=== PATIENT | male | born 1965 | race American Indian/Alaskan Native ===

== ENCOUNTER 2019-05-21 05:37 | Observation (INO) | payer OTHER ==
[2019-05-18 11:51] LABS: Basophils % (Auto) 0.8 % (0.0-1.8); Eosinophils # (Auto) 0.3 K/mm3 (0.0-0.4); Eosinophils % (Auto) 5.1 % (0.0-4.3); Hematocrit 43.3 % (35.5-45.6); Hemoglobin 14.4 gm/dl (11.8-15.2); Lymphocytes % (Auto) 38.8 % (13.4-35.0); Mean Corpuscular HGB Conc 33 % (32-34); Mean Corpuscular Volume 82 fl (84-94); Monocytes # (Auto) 0.4 K/mm3 (0.0-0.8); Monocytes % (Auto) 6.9 % (0.0-7.3); Platelet Count 220 K/mm3 (140-440); Red Cell Distribution Width 13.8 % (13.2-15.2)
[2019-05-18 12:10] LABS: Alanine Aminotransferase 12 units/L (7-56); Albumin 4.3 g/dL (3.9-5); BUN/Creatinine Ratio 12; Blood Urea Nitrogen 12 mg/dL (9-20); Calcium 8.8 mg/dL (8.4-10.2); Hemolysis Index 66
--- NOTE | 2019-05-18 12:11 | Anesthesia Consultation ---
Anesthesia Consult and Med Hx Date of service: 05/18/19 - Airway Anesthetic Teeth Evaluation: Good ROM Head & Neck: Adequate Mental/Hyoid Distance: Adequate Mallampati Class: Class III Intubation Access Assessment: Probably Good - Pulmonary Exam CTA: Yes - Cardiac Exam Cardiac Exam: RRR - Pre-Operative Health Status ASA Pre-Surgery Classification: ASA3 Proposed Anesthetic Plan: General - Pulmonary Hx Smoking: Yes (STOPPED X 4 YRS , NOW VAPS DAILY) Hx Sleep Apnea: Yes (DX SLEEP APNEA WITH BIPAP AND O2 USE AT NIGHT) - Cardiovascular System Hx Hypertension: Yes (X 20 YRS) - Central Nervous System Hx Psychiatric Problems: Yes (ANXIETY & DEPRESSION) - Gastrointestinal Hx Gastroesophageal Reflux Disease: Yes - Endocrine Hx Liver Disease: Yes (Hyperlipidemia) Hx Insulin Dependent Diabetes: Yes - Other Systems Hx Alcohol Use: Yes (2-3 DRINKS (VODKA) PER DAY) Hx Cancer: Yes (PROSTATE) - Additional Comments Anesthesia Medical History Comments: Patient states that he was diagnosed with an enlarged left ventricle. Patient completed a stress test and E[facility] a month ago. Records are not on the chart; will f/u with Dr. Estrada's office to see if they have a copy and order EKG today. Patient will bring a copy of the results from primary if he can find it at home.
[~2019-05-21 05:37] MED LIST: ceFAZolin/Water 2 GM/20 ML 2 GM/20 ML SYRINGE IV NR
[2019-05-21] MEDS ORDERED: LACTATED RINGERS 1,000 ML IV SCH (06:00)
[2019-05-21] MEDS ORDERED: ACETAMINOPHEN 500 MG TAB PO NR (06:00)
[2019-05-21] MEDS ORDERED: GABAPENTIN 300 MG CAP PO NR (06:00)
[2019-05-21] MEDS ORDERED: BACTERIOSTATIC SODIUM CHLORIDE 0.9% 30 ML VIAL INFILTRATI ONE (06:23)
[2019-05-21] MEDS: MIDAZOLAM 2 MG/2 ML INJ IV NR ×2 (07:03→07:41)
[2019-05-21] MEDS ORDERED: carvediloL 25 MG TAB PO NR (07:20)
[2019-05-21] MEDS ORDERED: amLODIPine 10 MG TAB PO NR (07:20)
[2019-05-21] MEDS ORDERED: fentaNYL 100 MCG/2 ML INJ IV PRN (07:21)
--- NOTE | 2019-05-21 07:21 | Anesthesia Day of Surgery ---
Anesthesia Day of Surgery - Day of Surgery Patient Examined: Yes Patient H&P Reviewed: Yes Patient is NPO: Yes Beta Blockers: Yes (will give usual dose coreg in preop)
[2019-05-21] MEDS ORDERED: BUPIVACAINE-EPINEPHRINE/PF 0.5%-1:200,000 (30 ML) VIAL INFILTRATI ONE ×2 (07:26→09:18)
[2019-05-21] MEDS ORDERED: CITRIC ACID-SOD CITRATE 500 ML IV ONE (07:26)
[2019-05-21] MEDS ORDERED: CALCIUM CHLORIDE 1,000 MG/10 ML SYRINGE IV ONE (07:27)
[2019-05-21] MEDS ORDERED: METHYLENE BLUE 50 MG/10 ML AMP ONE (07:27)
[2019-05-21] MEDS ORDERED: THROMBIN (RECOMBINANT) 5,000 UNIT VIAL TP ONE (07:29)
[2019-05-21] MEDS ORDERED: HYDROmorphone 1 MG/1 ML INJ ONE (07:29)
[2019-05-21] MEDS ORDERED: PROPOFOL 200 MG/20 ML VIAL IV ONE (07:29)
[2019-05-21] MEDS ORDERED: ROCURONIUM 50 MG/5 ML INJ IV ONE ×2 (07:36→09:36)
[2019-05-21] MEDS ORDERED: LIDOCAINE MPF (2%) 20 MG/1 ML VIAL 5 ML ONE (07:36)
[2019-05-21] MEDS ORDERED: WATER FOR IRRIG STERILE 1,500 ML BOTTLE IR ONE (09:19)
[2019-05-21] MEDS ORDERED: SODIUM CHLORIDE 0.9% IRRIG SOLN 2000 ML IR ONE (09:19)
[2019-05-21] MEDS ORDERED: ePHEDrine SULFATE 50 MG/1 ML INJ ONE (09:45)
[2019-05-21] MEDS ORDERED: GLYCOPYRROLATE 0.4 MG/2 ML INJ ONE (10:54)
[2019-05-21] MEDS ORDERED: NEOSTIGMINE 10MG/10 ML INJ MDV ONE (10:55)
[2019-05-21] MEDS ORDERED: ONDANSETRON 4 MG/2 ML INJ ONE (11:00)
[2019-05-21] MEDS ORDERED: NALOXONE 0.4 MG/1 ML INJ IV PRN (11:21)
[2019-05-21] MEDS ORDERED: ONDANSETRON 4 MG/2 ML INJ IV PRN (11:21)
[2019-05-21] MEDS ORDERED: ZOLPIDEM 5 MG TAB PO PRN (11:21)
[2019-05-21] MEDS ORDERED: DEXTROSE 50% IN WATER (25GM) 50 ML SYRINGE IV PRN (11:21)
--- NOTE | 2019-05-21 11:21 | Short Stay Summary ---
<JOSHUA BYRD S - Last Filed: 05/22/19 07:34> Short Stay Documentation - Allergies and Medications Current Medications: Allergies metformin Allergy (Verified 05/14/19 17:02) Hives telmisartan [From Micardis] Allergy (Verified 05/14/19 17:03) Hives Home Medications Medication Instructions Recorded Confirmed Last Taken Type Aspirin [Adult Aspirin] 81 mg PO DAILY 05/14/19 05/21/19 05/15/19 History Coreg 25 mg PO BID 05/14/19 05/14/19 05/19/19 History Famotidine [Pepcid] 20 mg PO PRN PRN 05/14/19 05/14/19 05/19/19 History Insulin Detemir [Levemir] 60 unit SQ BID 05/14/19 05/21/19 05/18/19 History [place]-3 Fatty Acids/Fish Oil [Fish 1 each PO DAILY 05/14/19 05/14/19 05/19/19 History Oil] amLODIPine [Norvasc] 10 mg PO DAILY 05/14/19 05/14/19 05/19/19 History hydroCHLOROthiazide [HCTZ] 25 mg PO QDAY 05/14/19 05/14/19 05/19/19 History Active Medications Acetaminophen/Hydrocodone Bitart ([place] 5/325) 2 each PO Q4H PRN PRN Reason: Pain, Moderate (4-6) Last Admin: 05/22/19 02:44 Dose: 2 each Documented by: Amlodipine Besylate (Amlodipine) 10 mg PO DAILY KANA Carvedilol (Coreg) 25 mg PO Q12HR KANA Last Admin: 05/21/19 21:51 Dose: 25 mg Documented by: Dextrose (D50w (25gm) Syringe) 50 ml IV Q30MIN PRN; Protocol PRN Reason: Hypoglycemia Famotidine (Pepcid) 20 mg PO PRN PRN PRN Reason: Indigestion Last Admin: 05/21/19 17:56 Dose: 20 mg Documented by: Hydrochlorothiazide (Hctz) 25 mg PO QDAY [facility] Lactated Ringer's (Lactated Ringers) 1,000 mls @ 100 mls/hr IV DIRECT KANA Last Admin: 05/21/19 06:50 Dose: 100 mls/hr Documented by: Sodium Chloride (Nacl 0.9% 1000 Ml) 1,000 mls @ 125 mls/hr IV DIRECT KANA Last Admin: 05/22/19 06:02 Dose: 125 mls/hr Documented by: Cefazolin Sodium (Ancef/Sterile Water 2 Gm/20 Ml) 2 gm in 20 mls @ 80 mls/hr IV PREOP NR; Protocol Stop: 05/27/19 14:14 Cefazolin Sodium (Ancef/Ns 1 Gm/50 Ml) 1 gm in 50 mls @ 100 mls/hr IV Q8H KANA; Protocol Stop: 05/23/19 20:29 Last Admin: 05/22/19 04:02 Dose: 100 mls/hr Documented by: Insulin Glargine (Lantus) 60 units SUB-Q BID KANA Last Admin: 05/21/19 21:52 Dose: 60 units Documented by: Morphine Sulfate (Morphine) 2 mg IV Q4H PRN PRN Reason: Pain, Moderate (4-6) Last Admin: 05/21/19 21:54 Dose: 2 mg Documented by: Naloxone HCl (Naloxone) 0.1 mg IV Q2MIN PRN PRN Reason: Res Rate </= 8 or 02 SAT < 92% Ondansetron HCl (Zofran) 4 mg IV Q8H PRN PRN Reason: Nausea And Vomiting Last Admin: 05/21/19 14:26 Dose: 4 mg Documented by: Zolpidem Tartrate (Ambien) 5 mg PO QHS PRN PRN Reason: Sleep - Disposition Condition at discharge: Stable - Discharge Diagnoses (1) Status post prostatectomy Status: Acute (2) HTN (hypertension) Status: Chronic Qualifiers: Hypertension type: essential hypertension Qualified Code(s): I10 - Essential (primary) hypertension (3) Diabetes mellitus, insulin dependent (IDDM), controlled Status: Chronic (4) DVT prophylaxis Status: Acute Short Stay Discharge Plan Follow up with: [facility] [Primary Care Provider] - 7 Days <SEBASTIAN SIMMS - Last Filed: 05/22/19 12:25> Short Stay Documentation Date of service: 05/21/19 - History H&P: obtained from office - Allergies and Medications Current Medications: Allergies metformin Allergy (Verified 05/14/19 17:02) Hives telmisartan [From Micardis] Allergy (Verified 05/14/19 17:03) Hives Home Medications Medication Instructions Recorded Confirmed Last Taken Type Aspirin [Adult Aspirin] 81 mg PO DAILY 05/14/19 05/21/19 05/15/19 History Coreg 25 mg PO BID 05/14/19 05/14/19 05/19/19 History Famotidine [Pepcid] 20 mg PO PRN PRN 05/14/19 05/14/19 05/19/19 History Insulin Detemir [Levemir] 60 unit SQ BID 05/14/19 05/21/19 05/18/19 History [place]-3 Fatty Acids/Fish Oil [Fish 1 each PO DAILY 05/14/19 05/14/19 05/19/19 History Oil] amLODIPine [Norvasc] 10 mg PO DAILY 05/14/19 05/14/19 05/19/19 History hydroCHLOROthiazide [HCTZ] 25 mg PO QDAY 05/14/19 05/14/19 05/19/19 History Active Medications Acetaminophen (Tylenol) 1,000 mg PO ONCE NR Stop: 05/21/19 23:59 Last Admin: 05/21/19 06:35 Dose: 1,000 mg Documented by: Fentanyl (Sublimaze) 50 mcg IV Q5MIN PRN PRN Reason: Pain , Severe (7-10) Stop: 05/21/19 20:00 Gabapentin (Gabapentin) 300 mg PO PREOP NR Stop: 05/21/19 23:59 Last Admin: 05/21/19 06:35 Dose: 300 mg Documented by: Cefazolin Sodium (Ancef/Sterile Water 2 Gm/20 Ml) 2 gm in 20 mls @ 80 mls/hr IV PREOP NR; Protocol Stop: 05/21/19 23:59 Lactated Ringer's (Lactated Ringers) 1,000 mls @ 100 mls/hr IV DIRECT KANA Last Admin: 05/21/19 06:50 Dose: 100 mls/hr Documented by: Midazolam HCl (Versed) 2 mg IV PREOP NR Stop: 05/21/19 23:59 Last Admin: 05/21/19 07:41 Dose: 2 mg Documented by: - Brief post op/procedure progress note Date of procedure: 05/21/19 Pre-op diagnosis: prostate ca Post-op diagnosis: same Procedure: robotic prostatectomy Anesthesia: GETA Surgeon: SEBASTIAN SIMMS Estimated blood loss: other (250cc) Pathology: list (prostate) Specimen disposition: to lab Condition: stable - Hospital course Hospital course: norco , bactrim, post op info on chart & brother in law at bedside questions answered dickens pink tinged urine
[2019-05-21] MEDS ORDERED: FAMOTIDINE 20 MG TAB PO PRN (11:25)
[2019-05-21] MEDS ORDERED: ceFAZolin/NS 1 GM/50 ML 1 GM/50 ML BAG IV SCH (12:00)
[2019-05-21] MEDS ORDERED: PHENYLEPHRINE/NS 1,000 MCG/10 ML SYRINGE (OR USE) IV ONE (12:09)
--- NOTE | 2019-05-21 13:00 | Consultation ---
History of Present Illness - Reason for Consult Consult date: 05/21/19 Medical management Requesting physician: SEBASTIAN SIMMS - History of Present Illness S/p Robotic prostatectomy for Prostate Cancer Past History Past Medical History: diabetes, hypertension Past Surgical History: TURP, Other (Robotic Prostectomy) Social history: lives with family, full code Family history: diabetes, hypertension Medications and Allergies Allergies Allergy/AdvReac Type Severity Reaction Status Date / Time metformin Allergy Hives Verified 05/14/19 17:02 telmisartan [From Micardis] Allergy Hives Verified 05/14/19 17:03 Home Medications Medication Instructions Recorded Confirmed Last Taken Type Aspirin [Adult Aspirin] 81 mg PO DAILY 05/14/19 05/21/19 05/15/19 History Coreg 25 mg PO BID 05/14/19 05/14/19 05/19/19 History Famotidine [Pepcid] 20 mg PO PRN PRN 05/14/19 05/14/19 05/19/19 History Insulin Detemir [Levemir] 60 unit SQ BID 05/14/19 05/21/19 05/18/19 History [place]-3 Fatty Acids/Fish Oil [Fish 1 each PO DAILY 05/14/19 05/14/19 05/19/19 History Oil] amLODIPine [Norvasc] 10 mg PO DAILY 05/14/19 05/14/19 05/19/19 History hydroCHLOROthiazide [HCTZ] 25 mg PO QDAY 05/14/19 05/14/19 05/19/19 History Active Meds: Active Medications Acetaminophen (Tylenol) 1,000 mg PO ONCE NR Stop: 05/21/19 23:59 Last Admin: 05/21/19 06:35 Dose: 1,000 mg Documented by: Acetaminophen/Hydrocodone Bitart ([place] 5/325) 2 each PO Q4H PRN PRN Reason: Pain, Moderate (4-6) Amlodipine Besylate (Amlodipine) 10 mg PO DAILY KANA Carvedilol (Coreg) 25 mg PO Q12HR KANA Dextrose (D50w (25gm) Syringe) 50 ml IV Q30MIN PRN; Protocol PRN Reason: Hypoglycemia Famotidine (Pepcid) 20 mg PO PRN PRN PRN Reason: Indigestion Fentanyl (Sublimaze) 50 mcg IV Q5MIN PRN PRN Reason: Pain , Severe (7-10) Stop: 05/21/19 20:00 Gabapentin (Gabapentin) 300 mg PO PREOP NR Stop: 05/21/19 23:59 Last Admin: 05/21/19 06:35 Dose: 300 mg Documented by: Hydrochlorothiazide (Hctz) 25 mg PO QDAY KANA Cefazolin Sodium (Ancef/Sterile Water 2 Gm/20 Ml) 2 gm in 20 mls @ 80 mls/hr IV PREOP NR; Protocol Stop: 05/21/19 23:59 Lactated Ringer's (Lactated Ringers) 1,000 mls @ 100 mls/hr IV DIRECT KANA Last Admin: 05/21/19 06:50 Dose: 100 mls/hr Documented by: Sodium Chloride (Nacl 0.9% 1000 Ml) 1,000 mls @ 125 mls/hr IV DIRECT KANA Cefazolin Sodium (Ancef/Ns 1 Gm/50 Ml) 1 gm in 50 mls @ 100 mls/hr IV Q8H KANA; Protocol Stop: 05/23/19 12:29 Insulin Glargine (Lantus) 60 units SUB-Q BID KANA Midazolam HCl (Versed) 2 mg IV PREOP NR Stop: 05/21/19 23:59 Last Admin: 05/21/19 07:41 Dose: 2 mg Documented by: Morphine Sulfate (Morphine) 2 mg IV Q4H PRN PRN Reason: Pain, Moderate (4-6) Naloxone HCl (Naloxone) 0.1 mg IV Q2MIN PRN PRN Reason: Res Rate </= 8 or 02 SAT < 92% Ondansetron HCl (Zofran) 4 mg IV Q8H PRN PRN Reason: Nausea And Vomiting Zolpidem Tartrate (Ambien) 5 mg PO QHS PRN PRN Reason: Sleep Review of Systems All systems: negative Constitutional: no weight loss, no weight gain, no fever, no chills Ears, nose, mouth and throat: deferred Cardiovascular: no chest pain, no orthopnea, no palpitations, no rapid/irregular heart beat Gastrointestinal: no abdominal pain, no nausea, no vomiting, no diarrhea, no constipation Genitourinary Male: urinary frequency Rectal: no pain Musculoskeletal: no neck stiffness, no neck pain Integumentary: deferred Neurological: no seizures, no syncope, no tremors Psychiatric: no anxiety, no memory loss, no change in sleep habits Endocrine: no cold intolerance, no heat intolerance, no polyphagia, no excessive thirst Hematologic/Lymphatic: no easy bruising, no easy bleeding Allergic/Immunologic: no urticaria, no allergic rhinitis, no wheezing Exam - Constitutional Vitals: Temp Pulse Resp BP Pulse Ox 97.8 F 55 L 14 108/60 97 05/21/19 11:50 05/21/19 12:30 05/21/19 12:30 05/21/19 12:30 05/21/19 12:30 General appearance: Present: no acute distress, well-nourished - EENT Eyes: Present: PERRL ENT: hearing intact, clear oral mucosa - Neck Neck: Present: supple, normal ROM - Respiratory Respiratory effort: normal Respiratory: bilateral: CTA - Cardiovascular Heart Sounds: Present: S1 & S2. Absent: rub, click - Extremities Extremities: pulses symmetrical, No edema Peripheral Pulses: within normal limits - Abdominal General gastrointestinal: Present: soft, non-tender, non-distended, normal bowel sounds Male genitourinary: Present: normal - Integumentary Integumentary: Present: clear, warm, dry - Musculoskeletal Musculoskeletal: gait normal, strength equal bilaterally - Psychiatric Psychiatric: appropriate mood/affect, intact judgment & insight - Neurologic Neurologic: CNII-XII intact, moves all extremities Results - Labs CBC & Chem 7: 05/18/19 11:20 05/18/19 11:20 Labs: Abnormal lab results 05/21/19 Range/Units 07:05 POC Glucose 213 H (70-105) Assessment and Plan - Patient Problems (1) Status post prostatectomy Current Visit: Yes Status: Acute Plan to address problem: Postop patient doing well (2) HTN (hypertension) Current Visit: Yes Status: Chronic Qualifiers: Hypertension type: essential hypertension Qualified Code(s): I10 - Essential (primary) hypertension Plan to address problem: COnt antihypertensives Monitor BP and adjust meds (3) Diabetes mellitus, insulin dependent (IDDM), controlled Current Visit: Yes Status: Chronic Plan to address problem: Cont home Insulin and coverage Check A1c (4) DVT prophylaxis Current Visit: Yes Status: Acute Plan to address problem: On SCD's and GI prophylaxis
[2019-05-21] MEDS ORDERED: INSULIN LISPRO 100 UNIT/ML SUB-Q ONE ×2 (13:11→13:19)
[2019-05-21] MEDS ORDERED: SODIUM CHLORIDE 0.9% 1000 ML 1,000 ML ONE (13:23)
[2019-05-21] MEDS ORDERED: ceFAZolin/Water 2 GM/20 ML 2 GM/20 ML SYRINGE IV NR (14:00)
--- NOTE | 2019-05-21 14:11 | Post Anesthesia Evaluation ---
- Post Anesthesia Evaluation Patient Participated: Yes Airway Patent: Yes Stable Respiratory Function: Yes Nausea/Vomiting: No Temp > 96.8F: Yes Pain Manageable: Yes Adequeate Hydration: Yes Anesthesia Complications: No
[2019-05-21] MEDS: MORPHINE 2 MG/1 ML INJ IV PRN ×3 (14:26→21:54)
[2019-05-21] MEDS: HYDROcodone/ACETAMINOPHEN 5-325 MG TAB PO PRN (17:55)
[2019-05-21] MEDS: ceFAZolin/NS 1 GM/50 ML 1 GM/50 ML BAG IV SCH (20:52)
[2019-05-21] MEDS: carvediloL 25 MG TAB PO SCH (21:51)
[2019-05-21] MEDS: INSULIN GLARGINE 100 UNITS/ML SUB-Q SCH (21:52)
[2019-05-21] MEDS: SODIUM CHLORIDE 0.9% 1000 ML 1,000 ML IV SCH (21:53)
[2019-05-21] MEDS ORDERED: NON-FORMULARY EACH (Coreg 25 MG) PO SCH (22:00)
[2019-05-21] MEDS ORDERED: INSULIN DETEMIR 60 UNIT SQ SCH (22:00)
[2019-05-22] MEDS: HYDROcodone/ACETAMINOPHEN 5-325 MG TAB PO PRN ×2 (02:44→10:13)
[2019-05-22] MEDS: ceFAZolin/NS 1 GM/50 ML 1 GM/50 ML BAG IV SCH (04:02)
[2019-05-22] MEDS: SODIUM CHLORIDE 0.9% 1000 ML 1,000 ML IV SCH (06:02)
[2019-05-22 08:46] LABS: Basophils % (Auto) 0.5 % (0.0-1.8); Eosinophils % (Auto) 0.3 % (0.0-4.3); Hemoglobin 13.1 gm/dl (11.8-15.2); Lymphocytes # (Auto) 1.6 K/mm3 (1.2-5.4); Lymphocytes % (Auto) 16.1 % (13.4-35.0); Mean Corpuscular HGB Conc 34 % (32-34); Mean Corpuscular Volume 81 fl (84-94); Monocytes # (Auto) 0.8 K/mm3 (0.0-0.8); Monocytes % (Auto) 7.6 % (0.0-7.3); Platelet Count 228 K/mm3 (140-440); Red Blood Count 4.79 M/mm3 (3.65-5.03); Red Cell Distribution Width 14.4 % (13.2-15.2)
[2019-05-22 09:10] LABS: BUN/Creatinine Ratio 10; Blood Urea Nitrogen 11 mg/dL (9-20); Calcium 7.5 mg/dL (8.4-10.2); Hemolysis Index 4
[2019-05-22] MEDS ORDERED: hydroCHLOROthiazide 25 MG TAB PO SCH (10:00)
[2019-05-22] MEDS ORDERED: amLODIPine 10 MG TAB PO SCH (10:00)
[2019-05-22] MEDS: carvediloL 25 MG TAB PO SCH (10:15)
[2019-05-22] MEDS: INSULIN GLARGINE 100 UNITS/ML SUB-Q SCH (10:16)
--- NOTE | 2019-05-22 13:14 | Operative Report ---
PREOPERATIVE DIAGNOSIS: Prostate cancer, [place] 3+4. POSTOPERATIVE DIAGNOSIS: Prostate cancer, [place] 3+4. PROCEDURE: Robotic-assisted laparoscopic prostatectomy. SURGEON: Jaden Estrada MD INVERTED BLOCK OPERATOR: Concepcion Castro. ANESTHESIA: General. ESTIMATED BLOOD LOSS: 200 mL. FLUIDS: Crystalloid, Cell Saver. COMPLICATIONS: No complications. DRAINS: Juan Luis-Medley drain x 1. INDICATIONS: This patient is a 53-year-old gentleman referred by Dr. Conway at the [facility]. He had a PSA of 11, underwent transrectal ultrasound and biopsy of his prostate at the [facility], was found to have [place] 3+4 in October of last year. Discussed options. The patient agreed to proceed with surgical intervention. DESCRIPTION OF PROCEDURE: The patient was taken to the operative suite, placed in a supine position. After adequate general anesthesia, he was placed in a modified dorsal lithotomy position and prepped and draped in a sterile fashion. Anderson catheter was placed on the operative field. Concepcion Castro was present throughout the procedure to assist with surgical dissection at the bedside. A 1-inch supraumbilical incision was made with the Bovie. Towel clips were placed. Anterior abdominal wall traction was placed. Veress needle was used, drop test was negative. Opening pressure was 3 cm of water. Insufflation of the abdomen with CO2 was performed to a maximum pressure of 15 cm of water. From the pubic symphysis, it was marked 15 cm the midline, 10 cm lateral to that and 10 cm lateral to that robotic ports were placed, 8 mm robotic ports on the left, one robotic port on the right as well as a 10 mm and a 5 mm helper port on the right. Under direct vision, camera port was placed without difficulty. No signs of intraperitoneal injury or bleeding. The patient was then placed in an exaggerated Trendelenburg position and the rest of the ports were placed under direct vision. Robotic cart was docked between the legs, traction was placed on the posterior aspect of the bladder. Second arch was used to scored exposing the seminal vesicles and vas deferens. Dissection was taken down to the apex of the prostate. Seminal vesicles and vas deferens were dissected out. Vas deferens was transected bilaterally. Attention was then taken to the anterior abdominal wall, lateral to the lateral umbilical ligament was scored bilaterally and then across the abdomen to drop the bladder. Pubic rami could be appreciated bilaterally. Dissection was then taken to expose the dorsal vein complex, which was controlled with a 65 mm vascular stapler. Endopelvic fascia was opened bilaterally. The patient had a fair amount of adipose tissue, could not see the neurovascular bundle; however, he already has a history of erectile dysfunction due to diabetes. Anterior bladder neck was transected exposing the Anderson, it was deflated and retracted anteriorly. Posterior bladder neck was transected exposing the seminal vesicles. They were retracted cephalad. There appeared to be a mass of possible median lobe, which was not evident on initial evaluation. This was excised separately and sent as a specimen and also anteriorly to the bladder neck, it was excised to get a better pathologic exam. Lateral pedicles were controlled with a 60 mm vascular stapler. At the 12 o'clock position, 2-0 Vicryl stitch was placed in the bladder neck to help with dissection. Bladder neck reconstruction was performed at the 7 o'clock and 5 o'clock positions using 2-0 Vicryl in interrupted fashion. It was tapered down to accommodate 18-[place] Anderson catheter. Double armed V-Loc was placed at the 6 o'clock position of the bladder neck corresponding aspect of the urethra running stitch placed bilaterally. A new 18-F[place] Anderson catheter was placed in the bladder. The anastomosis was cinched down. It was irrigated, no leak, 15 mL of water in the balloon. A Marcus-Mirta type stitch was placed in the posterior aspect of the pubic symphysis with the V-Loc stitch. Copious irrigation was performed. Adequate hemostasis was achieved. Platelet rich plasma and platelet poor plasma was injected around the anastomosis as well as a platelet membrane. Juan Luis-Medley drain was brought out through the left-sided robotic port, tied into position with 2-0 silk. The ports were removed under direct vision. The patient was undocked. The supraumbilical incision was extended slightly to allow removal of the prostate, which was placed in the EndoCatch bag. A 0 Vicryl [id number] sutures were used to close the supraumbilical incision. Skin was closed with 2-0 Vicryl in interrupted fashion. The Anderson, sideport was folded over and tied with 0 silk in interrupted fashion. The patient tolerated the procedure well and was extubated and taken to recovery room in stable condition. [facility]# [id number] EMILY/VERO
[2019-05-22 13:28] VITALS: BP 104/65
--- NOTE | 2019-05-22 15:39 | Progress Note ---
Hospitalist Physical - Constitutional Vitals: Temp Pulse Resp BP Pulse Ox 98.7 F 61 18 104/65 90 05/22/19 13:23 05/22/19 13:23 05/22/19 13:23 05/22/19 13:23 05/22/19 13:23 General appearance: Present: no acute distress, well-nourished Results - Labs CBC & Chem 7: 05/22/19 08:19 05/22/19 08:19 Labs: Laboratory Last Values WBC 10.2 K/mm3 (4.5-11.0) 05/22/19 08:19 RBC 4.79 M/mm3 (3.65-5.03) 05/22/19 08:19 Hgb 13.1 gm/dl (11.8-15.2) 05/22/19 08:19 Hct 39.0 % (35.5-45.6) 05/22/19 08:19 MCV 81 fl (84-94) L 05/22/19 08:19 MCH 27 pg (28-32) L 05/22/19 08:19 MCHC 34 % (32-34) 05/22/19 08:19 RDW 14.4 % (13.2-15.2) 05/22/19 08:19 Plt Count 228 K/mm3 (140-440) 05/22/19 08:19 Lymph % (Auto) 16.1 % (13.4-35.0) 05/22/19 08:19 [place] % (Auto) 7.6 % (0.0-7.3) H 05/22/19 08:19 Eos % (Auto) 0.3 % (0.0-4.3) 05/22/19 08:19 Baso % (Auto) 0.5 % (0.0-1.8) 05/22/19 08:19 Lymph # 1.6 K/mm3 (1.2-5.4) 05/22/19 08:19 [place] # 0.8 K/mm3 (0.0-0.8) 05/22/19 08:19 Eos # 0.0 K/mm3 (0.0-0.4) 05/22/19 08:19 Baso # 0.0 K/mm3 (0.0-0.1) 05/22/19 08:19 Seg Neutrophils % 75.5 % (40.0-70.0) H 05/22/19 08:19 Seg Neutrophils # 7.7 K/mm3 (1.8-7.7) 05/22/19 08:19 Sodium 139 mmol/L (137-145) 05/22/19 08:19 Potassium 4.2 mmol/L (3.6-5.0) 05/22/19 08:19 Chloride 101.9 mmol/L (98-107) 05/22/19 08:19 Carbon Dioxide 24 mmol/L (22-30) 05/22/19 08:19 Anion Gap 17 mmol/L 05/22/19 08:19 BUN 11 mg/dL (9-20) 05/22/19 08:19 Creatinine 1.1 mg/dL (0.8-1.5) 05/22/19 08:19 Estimated GFR > 60 ml/min 05/22/19 08:19 BUN/Creatinine Ratio 10 % 05/22/19 08:19 Glucose 193 mg/dL (75-100) H 05/22/19 08:19 POC Glucose 186 (70-105) H 05/22/19 11:34 Calcium 7.5 mg/dL (8.4-10.2) L 05/22/19 08:19 Total Bilirubin 0.40 mg/dL (0.1-1.2) 05/18/19 11:20 AST 18 units/L (5-40) 05/18/19 11:20 ALT 12 units/L (7-56) 05/18/19 11:20 Alkaline Phosphatase 47 units/L (35-129) 05/18/19 11:20 Total Protein 7.7 g/dL (6.3-8.2) 05/18/19 11:20 Albumin 4.3 g/dL (3.9-5) 05/18/19 11:20 Albumin/Globulin Ratio 1.3 % 05/18/19 11:20 Blood Type O POSITIVE 05/21/19 06:50 Antibody Screen Negative 05/21/19 06:50 Active Medications - Current Medications Current Medications: Generic Name Dose Route Start Last Admin Trade Name Freq PRN Reason Stop Dose Admin Acetaminophen/Hydrocodone Bitart 2 each 05/21/19 11:21 05/22/19 10:13 [place] 5/325 PO 2 each Q4H PRN Administration Pain, Moderate (4-6) Amlodipine Besylate 10 mg 05/22/19 10:00 05/22/19 10:14 Amlodipine PO 10 mg DAILY KANA Administration Carvedilol 25 mg 05/21/19 22:00 05/22/19 10:15 Coreg PO 25 mg Q12HR KANA Administration Dextrose 50 ml 05/21/19 11:21 D50w (25gm) Syringe IV Q30MIN PRN Hypoglycemia Protocol Famotidine 20 mg 05/21/19 11:25 05/21/19 17:56 Pepcid PO 20 mg PRN PRN Administration Indigestion Hydrochlorothiazide 25 mg 05/22/19 10:00 05/22/19 10:16 Hctz PO 25 mg QDAY KANA Administration Lactated Ringer's 1,000 mls @ 100 mls/hr 05/21/19 06:00 05/22/19 08:39 Lactated Ringers IV Infused DIRECT KANA Infusion Sodium Chloride 1,000 mls @ 125 mls/hr 05/21/19 11:30 05/22/19 06:02 Nacl 0.9% 1000 Ml IV 125 mls/hr DIRECT KANA Administration Cefazolin Sodium 2 gm in 20 mls @ 80 mls/hr 05/21/19 14:00 Ancef/Sterile Water 2 Gm/20 Ml IV 05/27/19 14:14 PREOP NR Protocol Cefazolin Sodium 1 gm in 50 mls @ 100 mls/hr 05/21/19 20:00 05/22/19 08:40 Ancef/Ns 1 Gm/50 Ml IV 05/23/19 20:29 Infused Q8H KANA Infusion Protocol Insulin Glargine 60 units 05/21/19 22:00 05/22/19 10:16 Lantus SUB-Q 60 units BID KANA Administration Morphine Sulfate 2 mg 05/21/19 11:21 05/21/19 21:54 Morphine IV 2 mg Q4H PRN Administration Pain, Moderate (4-6) Naloxone HCl 0.1 mg 05/21/19 11:21 Naloxone IV Q2MIN PRN Res Rate </= 8 or 02 SAT < 92% Ondansetron HCl 4 mg 05/21/19 11:21 05/21/19 14:26 Zofran IV 4 mg Q8H PRN Administration Nausea And Vomiting Zolpidem Tartrate 5 mg 05/21/19 11:21 Ambien PO QHS PRN Sleep
--- NOTE | 2019-05-22 17:51 | Event Note ---
Date: 05/22/19 Patient left prior to my seeing him
== END 2019-05-22 14:30 | disposition home or self-care (01) ==
LOC: OR 05:37 → 3B-SURG 11:21
PROVIDERS: ADMIT Urology; ATTEND Urology
DX: C61 Malignant neoplasm of prostate (principal); I10 Essential (primary) hypertension; E11.9 Type 2 diabetes mellitus without complications; Z79.82 Long term (current) use of aspirin; Z79.4 Long term (current) use of insulin
CPT/HCPCS: 36415; 55866; 80048; 80053; 82962; 85025; 86850; 86900; 86901; 88305; 88309; 88344; 93005; 93010; 96365; 96366; 96372; 96375; 96376; 99406; A4217; G0378; J0690; J1170; J2250; J2270; J2370; J2405; J2704; J2710; J7030; J7120; S2900; 88342; 99291; J1815; J3010; Q9968